=== PATIENT | male | born 1970 | race Caucasian/White ===

== ENCOUNTER 2021-01-17 22:51 | Emergency (ER) | payer OTHER ==
[~2021-01-17] VITALS: Ht 340.3 cm; Wt 106.6 kg
[2021-01-17] MEDS ORDERED: METFORMIN HYDR750 MG PO (23:04)
[2021-01-17] MEDS ORDERED: ZESTRIL,PRINIVIL5 MG PO (23:05)
[2021-01-17] MEDS ORDERED: GLUCOTROL XL2.5 MG PO (23:06)
[2021-01-18] MEDS ORDERED: CEPHALEXIN500 M1 PO (00:34)
[2021-01-18] MEDS ORDERED: SEPTDS PO (00:34)
== END 2021-01-18 00:37 | disposition home or self-care (01) ==
LOC: ED 22:51
DX: S91.331A Puncture wound without foreign body, right foot, initial encounter (principal); L08.9 Local infection of the skin and subcutaneous tissue, unspecified; E11.9 Type 2 diabetes mellitus without complications; Z79.899 Other long term (current) drug therapy; W22.8XXA Striking against or struck by other objects, initial encounter; Y93.89 Activity, other specified; Y92.89 Other specified places as the place of occurrence of the external cause; Y99.8 Other external cause status